=== PATIENT | male | born 1945 | race Caucasian/White ===

== ENCOUNTER → 2016-11-12 | Outpatient (CLI) | payer MEDICARE, OTHER ==
[~2016-11-12] MED LIST: ASPIRIN 81MG TA81 MG PO; ASPIRIN325 M1 PO; AVAPRO150 MG PO; CIPRO 500MG TA500 MG PO; CIPRO 750MG TA750 MG PO; CIPRO500 MG/5 M PO; CITRUS CALCIUM200 MG PO; CLINDAMYCIN300 MG PO; COZAAR50 MG PO; CRESTOR10 MG PO; CRESTOR20 MG PO; FLAGYL 500MG.500 MG PO; FLAGYL500 M1 PO; FLAGYL500 MG PO; FLOMAX 0.4MG C0.4 MG PO; HYDROCODONE1 TABLET PO; LEVAQUIN500 MG PO; LORTAB 5/500 501 TAB PO; METRONIDAZOLE500 M2 PO; METRONIDAZOLE500 MG PO; NEXIUM40 MG PO; PLAVIX75 MG PO; PREDNISONE50 MG PO; RIFAMPIN300 MG PO; SEPTRA DS 800 M1 TAB PO; TRILIPIX45 M1 PO; TYLENOL W/CODEI1 TA2 PO; ZOFRAN4 MG PO
--- NOTE | 2016-11-16 11:56 | RADIOLOGY REPORT PS360 ---
MRI-L-SPINE W/O, MRI-3D RENDERING/MYELOGRAM HISTORY: Bilateral low back pain and hip pain worse on the left LOW BACK PAIN, LUMBAR DEGENERATIVE DISC DISEASE COMPARISON: None TECHNIQUE: Standard multiplanar multiecho sequences are performed without contrast. 3-D MIP and myelographic images are also rendered and reviewed FINDINGS: Normal alignment. Spinal cord ends at the L1 level. L1-L2: Mild degenerative disc disease with mild disc desiccation. L2-L3: Mild degenerative disc disease with mild concentric bulging disc. Schmorl's node is present along the inferior endplate of L2 with increased T2 signal. Mild bilateral foraminal narrowing. Small hemangiomatous/lipoma along the L2 vertebral body laterally and posteriorly. L3-L4: Unremarkable. L4-L5: Mild facet and ligamentum flavum hypertrophy with minimal bulging disc. Mild right lateral recess narrowing. L5-S1: Degenerative disc disease with bulging disc with mild bilateral lateral recess and foraminal narrowing along with facet ligamentum flavum hypertrophy. Type II endplate changes. No disc herniation or canal stenosis. IMPRESSION: 1. Mild multilevel degenerative disc disease along with facet and ligamentum hypertrophy as described in detail at each level above. With areas of mild foraminal narrowing and lateral recess narrowing. Please see above for detail. 2. No disc herniation or canal stenosis.
== END ==
LOC: RAD 07:54
DX: M54.5 Low back pain (principal); M51.36 Other intervertebral disc degeneration, lumbar region